=== PATIENT | female | born 1945 | race Caucasian/White ===

== ENCOUNTER → 2020-08-27 14:50 | Outpatient (BNVA) | payer MEDICARE, SELFPAY | PROVIDERS: Visit Provider Nurse Practitioner Gerontology | DX: E11.65 Type 2 diabetes mellitus with hyperglycemia (principal); E11.21 Type 2 diabetes mellitus with diabetic nephropathy; E78.5 Hyperlipidemia, unspecified; I10 Essential (primary) hypertension; Z79.4 Long term (current) use of insulin | CPT/HCPCS: 82947; 99212 ==

== ENCOUNTER 2020-11-01 08:19 | Outpatient (REF) | payer MEDICARE, SELFPAY ==
[2020-11-01 09:20] LABS: Estimated Average Glucose 148 mg/dL; Hemoglobin A1C 152.4012 umol/L; Hemoglobin A1c % 6.8 %
[2020-11-01 09:25] LABS: Alanine Aminotransferase 16 U/L (0-31); Albumin Level 4.2 g/dL (3.5-5.0); Alkaline Phosphatase 59 U/L (39-117); Anion Gap 12 (12-20); Aspartate Amino Transferase 17 U/L (5-31); Bilirubin Total 0.4 mg/dL (0.0-1.0); Blood Urea Nitrogen 34 mg/dL (9-16); Calcium 9.7 mg/dL (8.4-10.2); Carbon Dioxide 26 mmol/L (22-29); Chloride 109 mmol/L (96-108); Cholesterol 123 mg/dL; Estimated Glomerular Filt Rate 34; Glucose Fasting 117 mg/dL (60-99); HDL Cholesterol 38 mg/dL; LDL Cholesterol Calculated 67 mg/dl; Potassium 5.1 mmol/L (3.3-5.1); Sodium 142 mmol/L (135-145); Total Protein 6.4 g/dL (6.5-8.0); Triglycerides 94 mg/dL
[2020-11-01 12:10] LABS: Creatinine Urine 72.87 mg/dL; Microalbum/Creatinine Ratio Ur 340.3 ug/mg cr
== END 2020-11-01 08:20 | disposition home or self-care (01) ==
LOC: HO.LAB 08:19
PROVIDERS: Visit Provider Nurse Practitioner Gerontology
DX: E11.21 Type 2 diabetes mellitus with diabetic nephropathy (principal)
CPT/HCPCS: 36415; 80053; 80061; 82043; 83036

== ENCOUNTER → 2021-07-30 12:49 | Outpatient (BNVA) | payer MEDICARE, SELFPAY | PROVIDERS: Visit Provider Nurse Practitioner Gerontology | DX: E11.65 Type 2 diabetes mellitus with hyperglycemia (principal); E11.21 Type 2 diabetes mellitus with diabetic nephropathy; E78.5 Hyperlipidemia, unspecified; I10 Essential (primary) hypertension; Z79.4 Long term (current) use of insulin | CPT/HCPCS: 82947; 83036; 99212 ==

== ENCOUNTER 2021-08-08 10:11 | Outpatient (REF) | payer MEDICARE, SELFPAY ==
[2021-08-08 11:29] LABS: Creatinine Urine 93.71 mg/dL
[2021-08-08 11:45] LABS: Alanine Aminotransferase 18 U/L (0-31); Albumin Level 4.3 g/dL (3.5-5.0); Alkaline Phosphatase 60 U/L (39-117); Anion Gap 14 (12-20); Aspartate Amino Transferase 23 U/L (5-31); Bilirubin Total 0.4 mg/dL (0.0-1.0); Blood Urea Nitrogen 34 mg/dL (9-16); Calcium 9.8 mg/dL (8.4-10.2); Carbon Dioxide 23 mmol/L (22-29); Chloride 109 mmol/L (96-108); Cholesterol 160 mg/dL; Estimated Glomerular Filt Rate 33; Glucose Fasting 102 mg/dL (60-99); HDL Cholesterol 41 mg/dL; LDL Cholesterol Calculated 99 mg/dl; Potassium 5.1 mmol/L (3.3-5.1); Sodium 141 mmol/L (135-145); Total Protein 6.8 g/dL (6.5-8.0); Triglycerides 103 mg/dL
[2021-08-10 05:52] LABS: LDL Cholesterol Direct 93 mg/dL (<100)
== END 2021-08-08 10:12 | disposition home or self-care (01) ==
LOC: HO.LAB 10:11
PROVIDERS: Visit Provider Nurse Practitioner Gerontology
DX: E11.21 Type 2 diabetes mellitus with diabetic nephropathy (principal)
CPT/HCPCS: 36415; 80053; 80061; 82043; 83721

== ENCOUNTER 2022-02-01 19:40 | Emergency (ER) | payer MEDICARE, SELFPAY ==
--- NOTE | ~2022-02-01 | XR_ITS ---
EXAMINATION: BILATERAL FOOT. CLINICAL INFORMATION: Redness steatosis. COMPARISON: None TECHNIQUE: 3 views each foot. FINDINGS: Right foot: There is diffuse osteopenia no visible fracture or dislocation seen. There is enthesophytes along the base of the fifth metatarsal. The joint spaces are maintained normal. There is vascular calcifications in the right foot and right ankle. Small calcaneal heel and retrocalcaneal enthesophytes are seen. Left foot: There is no visible acute fracture, dislocation or subluxation seen. There is moderate size enthesophyte along the base of the fifth metatarsal. There is diffuse osteopenia without underlying fracture or dislocation. The ankle mortise and subtalar joints are normal. There is calcaneal heel and retrocalcaneal enthesophytes. XR/XR foot LT min 3V IMPRESSION: No acute fracture or dislocation. Diffuse osteopenia. Enthesophytes along the calcaneal heel, retrocalcaneum and the base of fifth metacarpal.
--- NOTE | ~2022-02-01 | XR_ITS ---
EXAMINATION: BILATERAL FOOT. CLINICAL INFORMATION: Redness steatosis. COMPARISON: None TECHNIQUE: 3 views each foot. FINDINGS: Right foot: There is diffuse osteopenia no visible fracture or dislocation seen. There is enthesophytes along the base of the fifth metatarsal. The joint spaces are maintained normal. There is vascular calcifications in the right foot and right ankle. Small calcaneal heel and retrocalcaneal enthesophytes are seen. Left foot: There is no visible acute fracture, dislocation or subluxation seen. There is moderate size enthesophyte along the base of the fifth metatarsal. There is diffuse osteopenia without underlying fracture or dislocation. The ankle mortise and subtalar joints are normal. There is calcaneal heel and retrocalcaneal enthesophytes. XR/XR foot RT min 3V IMPRESSION: No acute fracture or dislocation. Diffuse osteopenia. Enthesophytes along the calcaneal heel, retrocalcaneum and the base of fifth metacarpal.
[2022-02-01 19:51] VITALS: BP 166/75; PULSE 111; RESP 16; TEMP 36.6; O2SAT 98; BMI 32.5
--- NOTE | 2022-02-01 19:55 | ED.EXTPRO ---
HPI - Extremity Problem General Chief complaint: Extremity Injury, Lower <Sean Acharya DO - Last Filed: 02/01/22 19:59> Stated complaint: left foot pain ?ulcer on foot <Sean Acharya DO - Last Filed: 02/01/22 19:59> Time Seen by Provider: 02/01/22 20:50 <Sean Acharya DO - Last Filed: 02/01/22 19:59> Source: patient <Sera Sawant MD - Last Filed: 02/01/22 22:59> Mode of arrival: ambulatory <Sera Sawant MD - Last Filed: 02/01/22 22:59> Limitations: no limitations <Sera Sawant MD - Last Filed: 02/01/22 22:59> History of Present Illness HPI Narrative: Patient comes to the emergency room complaining of blister to the lateral aspect of the left foot. Patient states it has been present for 4 days. However, she has had redness for several months intermittently. Patient states that recently she but bigger size shoes so that the inner lining of the shoe does not rub against the wound. Patient states that she has history of neuropathy but it is on the milder side. Patient denies any fever or chills <Sera Sawant MD - Last Filed: 02/01/22 22:59> Related Data Home medications: Home Medications Medication Instructions Recorded Confirmed mecobalamin (vitamin B12) 1,000 1,000 mcg sublingual DAILY 02/11/20 07/30/21 mcg disintegrating tablet,sublingual naproxen sodium 220 mg capsule 220 mg PO Q12H 02/11/20 07/30/21 (Aleve) cholecalciferol (vitamin D3) 25 25 mcg PO DAILY 08/27/20 07/30/21 mcg (1,000 unit) capsule Previous Rx's Medication Instructions Recorded pen needle, diabetic 32 gauge x 1 ea miscellaneous BID #100 ea 03/12/21 (BD Clau 2nd Gen Pen Needle) chlorthalidone 25 mg tablet 25 mg PO DAILY #90 tabs 07/27/21 lisinopril 40 mg tablet 40 mg PO DAILY #90 tabs 07/30/21 metformin 500 mg tablet 500 mg PO BID #180 tabs 07/30/21 pioglitazone 30 mg tablet 30 mg PO DAILY #30 tabs 07/30/21 dapagliflozin 10 mg tablet 10 mg PO QAM #30 [facility]12[facility] insulin glargine 100 unit/mL (3 30 unit (0.3 mL) subcut QAM #15 mL 08/12/21 mL) subcutaneous pen (Lantus Solostar U-100 Insulin) liraglutide 0.6 mg/0.1 mL (18 mg/3 1.8 mg (0.3 mL) subcut DAILY #9 mL 01/01/22 mL) subcutaneous pen injector (Victoza 3-Jamie) simvastatin 40 mg tablet 40 mg PO BEDTIME 90 days #30 tabs 01/29/22 cephalexin 500 mg capsule 500 mg PO BID #14 caps 02/01/22 doxycycline hyclate 100 mg capsule 100 mg PO BID #14 caps 02/01/22 <Sean Acharya DO - Last Filed: 02/01/22 19:59> Allergies/Adverse reactions: Allergies Allergy/AdvReac Type Severity Reaction Status Date / Time penicillin V Allergy Unknown Hives Verified 07/30/21 13:08 <Sean Acharya DO - Last Filed: 02/01/22 19:59> Review of Systems Review of Systems: Constitutional : No Weight loss, No Fever, No Chills, No Night Sweats, No Fatigue, No Malaise ENT/Mouth : No Hearing loss, No Ear Pain, No Nasal Congestion, No Sinus Pain, No Hoarseness, No sore throat, No Rhinorrhea, No Swallowing Difficulty Eyes: No Eye Pain, No Swelling, No Redness, No Foreign Body, No Discharge, No Vision Changes Cardiovascular : No Chest Pain, No SOB, No Dyspnea on Exertion, No Orthopnea, No Edema, No Palpitations Respiratory : No Cough, No Sputum, No Wheezing, No Smoke Exposure, No Dyspnea Gastrointestinal : No Nausea, No Vomiting, No Diarrhea, No Constipation, No abdominal Pain, No Hematochezia, No Melena Genitourinary : no irregular bleeding, No Dysuria, No Urinary Frequency, No Hematuria, No Urinary Incontinence, No Urgency, No Flank Pain, No Urinary Flow Changes, No Hesitancy Musculoskeletal : No joint pain, No Myalgias, No Joint Swelling Skin : Complaining of a skin lesion/blister to the lateral aspect of the left foot Neuro : No Weakness, No Numbness, No Paresthesias, No Loss of Consciousness, No Dizziness, No Headache Psych : No Anxiety/Panic, No Depression, No SI/HI/AH/VH, No Social Issues, Heme/Lymph: No Bruising, No Bleeding,No Lymphadenopathy Endocrine : No Polyuria, No Polydipsia, No Temperature Intolerance <Sera Sawant MD - Last Filed: 02/01/22 22:59> [facility] Past Medical History Medical History: Medical History Chronic kidney disease, stage 3 Essential hypertension Hyperlipidemia LDL goal <100 Type 2 diabetes mellitus with hyperglycemia, with long-term current use of insulin Type 2 diabetes with nephropathy <Sean Acharya DO - Last Filed: 02/01/22 19:59> Surgical History: Surgical History Hx of section <Sean Acharya DO - Last Filed: 02/01/22 19:59> Family History Family History: Family History Maternal Aunt Diabetes <Sean Acharya DO - Last Filed: 02/01/22 19:59> Social History Social History: Social History Household Members Other:: daughter Patient Tobacco Use Status: Never used Tobacco Advance Directives: No <Sean Acharya DO - Last Filed: 02/01/22 19:59> Physical Exam Vital Signs: Vital Signs: Last Vital Signs Temp 97.7 F 02/01/22 22:25 Pulse 96 02/01/22 22:25 Resp 16 02/01/22 22:25 BP 131/62 02/01/22 22:25 Pulse Ox 97 02/01/22 22:25 O2 Del Method 02/01/22 22:25 BMI result Body Mass Index 32.5 <Sean Acharya DO - Last Filed: 02/01/22 19:59> Vital Signs: Last Vital Signs Temp 97.7 F 02/01/22 22:25 Pulse 96 02/01/22 22:25 Resp 16 02/01/22 22:25 BP 131/62 02/01/22 22:25 Pulse Ox 97 02/01/22 22:25 O2 Del Method 02/01/22 22:25 BMI result Body Mass Index 32.5 <Sera Sawant MD - Last Filed: 02/01/22 22:59> Const: Other: Appearance: Alert. Oriented X3. No acute distress. Eyes: Pupils equal, round and reactive to light. ENT: Pharynx normal. Neck: Normal inspection. Neck supple. No lymph nodes noted. No crepitus CVS: Normal heart rate and rhythm. Pulses normal. Normal S1 and S2 Respiratory: No respiratory distress. Breath sounds normal. No Wheezing. No rales Abdomen: Soft and nontender. No rigidity. No distention. Skin: Skin warm and dry. Normal skin color. Normal skin turgor. There is a 2 cm x 1 cm blister to the lateral aspect of the foot. Extremities: No lower extremity edema. No Lacerations. No Rash Neuro: Oriented X 3. No motor deficit. No sensory deficit. Moving all extremities. No slurred speech. CN 2 through 12 grossly intact Psych: calm, cooperative, normal affect <Sera Sawant MD - Last Filed: 02/01/22 22:59> Course Course Course Narrative: 76 year old female presents to the ED with bilateral foot redness for months on and off. She states she changed shoes and felt they were too tight. She states she has had no injuries but noticed a blister than formed a ulcer to her left lateral foot. She denies any falls or new injuries. Patient is diabetic as well. She states this has been worsening for the past 4 days. On exam both feet have redness to all ten toes left foot has a small healing ulcer to the left foot along the fifth metatarsal. Concern for osteomyelitis diabetic foot ulcer. I will start on antibiotics I will send blood cultures lactic and get XR's. Patient seen in triage I will sign out for interpretation of labs, diagnosis and ultimate disposition. <Sean Acharya DO - Last Filed: 02/01/22 19:59> 76 year old female presents to the ED with bilateral foot redness for months on and off. She states she changed shoes and felt they were too tight. She states she has had no injuries but noticed a blister than formed a ulcer to her left lateral foot. She denies any falls or new injuries. Patient is diabetic as well. She states this has been worsening for the past 4 days. On exam both feet have redness to all ten toes left foot has a small healing ulcer to the left foot along the fifth metatarsal. Concern for osteomyelitis diabetic foot ulcer. I will start on antibiotics I will send blood cultures lactic and get XR's. Patient seen in triage I will sign out for interpretation of labs, diagnosis and ultimate disposition. All of patient's labs and imaging are pending, blood pressure normal, no fever. X-rays are negative for osteomyelitis. Lactic acid within normal limits, white blood cell count slightly elevated, ESR and CRP also slightly elevated, but not to suspect osteomyelitis. Patient's creatinine is bumped from baseline. Patient usually has a creatinine of 1.5 approximately, 2 days 2.17. Patient is receiving IV fluids. I discussed with the patient that ideally we should be rechecking labs to see if this is acute on chronic kidney injury versus worsening of her VANNA. Patient states that she has an appointment pending with her primary care physician, and she prefers to wait until her next appointment to recheck the creatinine levels instead of waiting for the recheck, and respectfully declined a 2nd creatinine check Patient was given 1 p.o. dose of Keflex and cephalexin <Sera Sawant MD - Last Filed: 02/01/22 22:59> Medications Administered Generic Name Dose Route Start Last Admin Trade Name Freq PRN Reason Stop Dose Admin Sodium Chloride 1,000 mls @ 999 mls/hr 02/01/22 21:56 02/01/22 22:07 Ns IVCONT 02/01/22 22:56 999 mls/hr .Q1H1M ONE Administration <Sean Acharya DO - Last Filed: 02/01/22 19:59> Medications Administered Generic Name Dose Route Start Last Admin Trade Name Freq PRN Reason Stop Dose Admin Sodium Chloride 1,000 mls @ 999 mls/hr 02/01/22 21:56 02/01/22 22:07 Ns IVCONT 02/01/22 22:56 999 mls/hr .Q1H1M ONE Administration <Sera Sawant MD - Last Filed: 02/01/22 22:59> MDM - Extremity (Nontraumatic) Lab Data Result diagrams: : 02/01/22 21:08 02/01/22 21:08 <Sean Acharya DO - Last Filed: 02/01/22 19:59> Labs: Lab Results 02/01/22 02/01/22 02/01/22 Range/Units 21:08 21:08 21:08 WBC 11.6 H (4.8-10.8) X10*3/uL RBC 4.06 L (4.20-5.50) X10*6/uL Hgb 12.1 (12.0-16.0) g/dl Hct 37.2 (37.0-47.0) % MCV 91.6 (80.0-98.0) fL MCH 29.8 (27.0-33.0) pg MCHC 32.5 (31.0-35.0) g/dl RDW 14.6 (11.0-16.0) % Plt Count 286 (160-400) X10*3/uL MPV 9.8 (9.4-12.3) fL Immature Gran % (Auto) 1.0 H (0.0-0.4) % Neut % (Auto) 67.3 (45-73) % Lymph % (Auto) 19.8 L (20-40) % [place] % (Auto) 8.7 (2-11) % Eos % (Auto) 2.9 (0-4) % Baso % (Auto) 0.3 (0-2) % Lymph # (Auto) 2.3 (1.2-4.9) X10*3/uL [place] # (Auto) 1.0 (0.1-1.2) X10*3/uL Eos # (Auto) 0.3 (0.0-0.4) X10*3/uL Baso # (Auto) 0.0 (0.0-0.2) X10*3/uL Abs Immat Gran (auto) 0.11 H (0.00-0.03) X10*3/uL Absolute Neuts (auto) 7.8 (2.0-8.3) x10*3/uL Absolute Nucleated RBC 0.000 (0.0-0.012) X10*3/uL Nucleated RBC % (auto) 0.0 (0.0-0.2) /100WBC ESR 25 H (0-20) MM/HR Sodium 141 (135-145) mmol/L Potassium 5.2 H (3.3-5.1) mmol/L Chloride 106 (96-108) mmol/L Carbon Dioxide 22 (22-29) mmol/L Anion Gap 18 (12-20) BUN 49 H (9-16) mg/dL Creatinine 2.17 H (0.5-1.4) mg/dL Estim Creat Clear Calc 23.0 Estimated GFR 22 Random Glucose 142 H (60-115) mg/dL Lactic Acid (0.5-2.0) mmol/L Calcium 10.0 (8.4-10.2) mg/dL Total Bilirubin 0.3 (0.0-1.0) mg/dL Direct Bilirubin < 0.2 (0.0-0.5) mg/dL AST 29 (5-31) U/L ALT 18 (0-31) U/L Alkaline Phosphatase 69 (39-117) U/L C-Reactive Protein 0.28 (< or = 0.50) mg/dL Total Protein 7.5 (6.5-8.0) g/dL Albumin 4.6 (3.5-5.0) g/dL COVID-19 ([facility]) (Negative) COVID-19 Clin Com 02/01/22 02/01/22 Range/Units 21:08 21:08 WBC (4.8-10.8) X10*3/uL RBC (4.20-5.50) X10*6/uL Hgb (12.0-16.0) g/dl Hct (37.0-47.0) % MCV (80.0-98.0) fL MCH (27.0-33.0) pg MCHC (31.0-35.0) g/dl RDW (11.0-16.0) % Plt Count (160-400) X10*3/uL MPV (9.4-12.3) fL Immature Gran % (Auto) (0.0-0.4) % Neut % (Auto) (45-73) % Lymph % (Auto) (20-40) % [place] % (Auto) (2-11) % Eos % (Auto) (0-4) % Baso % (Auto) (0-2) % Lymph # (Auto) (1.2-4.9) X10*3/uL [place] # (Auto) (0.1-1.2) X10*3/uL Eos # (Auto) (0.0-0.4) X10*3/uL Baso # (Auto) (0.0-0.2) X10*3/uL Abs Immat Gran (auto) (0.00-0.03) X10*3/uL Absolute Neuts (auto) (2.0-8.3) x10*3/uL Absolute Nucleated RBC (0.0-0.012) X10*3/uL Nucleated RBC % (auto) (0.0-0.2) /100WBC ESR (0-20) MM/HR Sodium (135-145) mmol/L Potassium (3.3-5.1) mmol/L Chloride (96-108) mmol/L Carbon Dioxide (22-29) mmol/L Anion Gap (12-20) BUN (9-16) mg/dL Creatinine (0.5-1.4) mg/dL Estim Creat Clear Calc Estimated GFR Random Glucose (60-115) mg/dL Lactic Acid 1.1 (0.5-2.0) mmol/L Calcium (8.4-10.2) mg/dL Total Bilirubin (0.0-1.0) mg/dL Direct Bilirubin (0.0-0.5) mg/dL AST (5-31) U/L ALT (0-31) U/L Alkaline Phosphatase (39-117) U/L C-Reactive Protein (< or = 0.50) mg/dL Total Protein (6.5-8.0) g/dL Albumin (3.5-5.0) g/dL COVID-19 ([facility]) Negative (Negative) COVID-19 Clin Com See Note <Sean Acharya, DO - Last Filed: 02/01/22 19:59> Lab Results 02/01/22 02/01/22 02/01/22 Range/Units 21:08 21:08 21:08 WBC 11.6 H (4.8-10.8) X10*3/uL RBC 4.06 L (4.20-5.50) X10*6/uL Hgb 12.1 (12.0-16.0) g/dl Hct 37.2 (37.0-47.0) % MCV 91.6 (80.0-98.0) fL MCH 29.8 (27.0-33.0) pg MCHC 32.5 (31.0-35.0) g/dl RDW 14.6 (11.0-16.0) % Plt Count 286 (160-400) X10*3/uL MPV 9.8 (9.4-12.3) fL Immature Gran % (Auto) 1.0 H (0.0-0.4) % Neut % (Auto) 67.3 (45-73) % Lymph % (Auto) 19.8 L (20-40) % [place] % (Auto) 8.7 (2-11) % Eos % (Auto) 2.9 (0-4) % Baso % (Auto) 0.3 (0-2) % Lymph # (Auto) 2.3 (1.2-4.9) X10*3/uL [place] # (Auto) 1.0 (0.1-1.2) X10*3/uL Eos # (Auto) 0.3 (0.0-0.4) X10*3/uL Baso # (Auto) 0.0 (0.0-0.2) X10*3/uL Abs Immat Gran (auto) 0.11 H (0.00-0.03) X10*3/uL Absolute Neuts (auto) 7.8 (2.0-8.3) x10*3/uL Absolute Nucleated RBC 0.000 (0.0-0.012) X10*3/uL Nucleated RBC % (auto) 0.0 (0.0-0.2) /100WBC ESR 25 H (0-20) MM/HR Sodium 141 (135-145) mmol/L Potassium 5.2 H (3.3-5.1) mmol/L Chloride 106 (96-108) mmol/L Carbon Dioxide 22 (22-29) mmol/L Anion Gap 18 (12-20) BUN 49 H (9-16) mg/dL Creatinine 2.17 H (0.5-1.4) mg/dL Estim Creat Clear Calc 23.0 Estimated GFR 22 Random Glucose 142 H (60-115) mg/dL Lactic Acid (0.5-2.0) mmol/L Calcium 10.0 (8.4-10.2) mg/dL Total Bilirubin 0.3 (0.0-1.0) mg/dL Direct Bilirubin < 0.2 (0.0-0.5) mg/dL AST 29 (5-31) U/L ALT 18 (0-31) U/L Alkaline Phosphatase 69 (39-117) U/L C-Reactive Protein 0.28 (< or = 0.50) mg/dL Total Protein 7.5 (6.5-8.0) g/dL Albumin 4.6 (3.5-5.0) g/dL COVID-19 ([facility]) (Negative) COVID-19 Clin Com 02/01/22 02/01/22 Range/Units 21:08 21:08 WBC (4.8-10.8) X10*3/uL RBC (4.20-5.50) X10*6/uL Hgb (12.0-16.0) g/dl Hct (37.0-47.0) % MCV (80.0-98.0) fL MCH (27.0-33.0) pg MCHC (31.0-35.0) g/dl RDW (11.0-16.0) % Plt Count (160-400) X10*3/uL MPV (9.4-12.3) fL Immature Gran % (Auto) (0.0-0.4) % Neut % (Auto) (45-73) % Lymph % (Auto) (20-40) % [place] % (Auto) (2-11) % Eos % (Auto) (0-4) % Baso % (Auto) (0-2) % Lymph # (Auto) (1.2-4.9) X10*3/uL [place] # (Auto) (0.1-1.2) X10*3/uL Eos # (Auto) (0.0-0.4) X10*3/uL Baso # (Auto) (0.0-0.2) X10*3/uL Abs Immat Gran (auto) (0.00-0.03) X10*3/uL Absolute Neuts (auto) (2.0-8.3) x10*3/uL Absolute Nucleated RBC (0.0-0.012) X10*3/uL Nucleated RBC % (auto) (0.0-0.2) /100WBC ESR (0-20) MM/HR Sodium (135-145) mmol/L Potassium (3.3-5.1) mmol/L Chloride (96-108) mmol/L Carbon Dioxide (22-29) mmol/L Anion Gap (12-20) BUN (9-16) mg/dL Creatinine (0.5-1.4) mg/dL Estim Creat Clear Calc Estimated GFR Random Glucose (60-115) mg/dL Lactic Acid 1.1 (0.5-2.0) mmol/L Calcium (8.4-10.2) mg/dL Total Bilirubin (0.0-1.0) mg/dL Direct Bilirubin (0.0-0.5) mg/dL AST (5-31) U/L ALT (0-31) U/L Alkaline Phosphatase (39-117) U/L C-Reactive Protein (< or = 0.50) mg/dL Total Protein (6.5-8.0) g/dL Albumin (3.5-5.0) g/dL COVID-19 ([facility]) Negative (Negative) COVID-19 Clin Com See Note <Sera Sawant MD - Last Filed: 02/01/22 22:59> Discharge Plan Discharge Clinical Impression: Blister of foot, Chronic kidney disease <Sean Acharya DO - Last Filed: 02/01/22 19:59> Patient Disposition: Home, Self-Care <Sean Acharya DO - Last Filed: 02/01/22 19:59> Instructions: Blister (ED) <Sean Acharya DO - Last Filed: 02/01/22 19:59> Additional Instructions: Please follow-up with your primary care physician tomorrow. If you have any worsening or new symptoms, please return to the emergency room or call 911 <Sean Acharya DO - Last Filed: 02/01/22 19:59> Prescriptions: New doxycycline hyclate 100 mg capsule 100 mg PO BID Qty: 14 0RF cephalexin 500 mg capsule 500 mg PO BID Qty: 14 0RF No Action pen needle, diabetic [BD Clau 2nd Gen Pen Needle] 32 gauge x 5/32 needle 1 ea miscellaneous BID Qty: 100 10RF chlorthalidone 25 mg tablet 25 mg PO DAILY Qty: 90 1RF Lantus Solostar U-100 Insulin 100 unit/mL (3 mL) insulin pen 30 unit subcut QAM Qty: 15 6RF Farxiga 10 mg tablet 10 mg PO QAM Qty: 30 6RF Victoza 3-Jamie 0.6 mg/0.1 mL (18 mg/3 mL) pen injector 1.8 mg subcut DAILY Qty: 9 2RF simvastatin 40 mg tablet 40 mg PO BEDTIME 90 Days Qty: 30 1RF Rx Instructions: future refills to pcp. pioglitazone 30 mg tablet 30 mg PO DAILY Qty: 30 6RF metformin 500 mg tablet 500 mg PO BID Qty: 180 1RF lisinopril 40 mg tablet 40 mg PO DAILY Qty: 90 1RF naproxen sodium [Aleve] 220 mg capsule 220 mg PO Q12H mecobalamin (vitamin B12) 1,000 mcg tablet,disintegrating 1,000 mcg sublingual DAILY Rx Instructions: place tablet under tongue and allow to dissolve for at least30 secs before swallowing cholecalciferol (vitamin D3) 25 mcg (1,000 unit) capsule 25 mcg PO DAILY <Sean Acharya DO - Last Filed: 02/01/22 19:59>
[2022-02-01 21:13] LABS: MANUAL DIFF FLAG NO
[2022-02-01 21:24] LABS: Basophils Percent Auto 0.3 % (0-2); Eosinophils Absolute Auto 0.3 X10*3/uL (0.0-0.4); Eosinophils Percent Auto 2.9 % (0-4); Hematocrit 37.2 % (37.0-47.0); Hemoglobin 12.1 g/dl (12.0-16.0); Imm Gran Abs Auto 0.11 X10*3/uL (0.00-0.03); Lymphocytes Absolute Auto 2.3 X10*3/uL (1.2-4.9); Lymphocytes Percent Auto 19.8 % (20-40); Mean Corpuscular HGB Conc 32.5 g/dl (31.0-35.0); Mean Corpuscular Hemoglobin 29.8 pg (27.0-33.0); Mean Corpuscular Volume 91.6 fL (80.0-98.0); Mean Platelet Volume 9.8 fL (9.4-12.3); Monocytes Percent Auto 8.7 % (2-11); Neutrophils Absolute Auto 7.8 x10*3/uL (2.0-8.3); Neutrophils Percent Auto 67.3 % (45-73); Platelet Count 286 X10*3/uL (160-400); Red Blood Count 4.06 X10*6/uL (4.20-5.50); Red Cell Distribution Width 14.6 % (11.0-16.0); White Blood Count 11.6 X10*3/uL (4.8-10.8)
[2022-02-01 21:31] LABS: COVID-19 Test Negative (Negative); IDNOW Serial# 16C4AD1C
[2022-02-01 21:32] LABS: Lactic Acid 1.1 mmol/L (0.5-2.0)
[2022-02-01 21:44] LABS: Alanine Aminotransferase 18 U/L (0-31); Albumin Level 4.6 g/dL (3.5-5.0); Alkaline Phosphatase 69 U/L (39-117); Anion Gap 18 (12-20); Aspartate Amino Transferase 29 U/L (5-31); Bilirubin Direct < 0.2 mg/dL (0.0-0.5); Bilirubin Total 0.3 mg/dL (0.0-1.0); Blood Urea Nitrogen 49 mg/dL (9-16); C Reactive Protein 0.28 mg/dL (< or = 0.50); Carbon Dioxide 22 mmol/L (22-29); Chloride 106 mmol/L (96-108); Estimated Glomerular Filt Rate 22; Glucose Random 142 mg/dL (60-115); Potassium 5.2 mmol/L (3.3-5.1); Sodium 141 mmol/L (135-145); Total Protein 7.5 g/dL (6.5-8.0)
[2022-02-01] MEDS: 0.9 % Sodium Chloride 1,000 ML 999 ML IVCONT (22:07)
[2022-02-01 22:11] VITALS: BP 145/67; PULSE 100; RESP 18; O2SAT 97
[2022-02-01 22:25] VITALS: BP 131/62; PULSE 96; RESP 16; TEMP 36.5; O2SAT 97
[2022-02-01 22:26] LABS: Erythrocyte Sedimentation Rate 25 MM/HR (0-20)
[2022-02-01] MEDS: Doxycycline Monohydrate 100 MG CAPSULE PO (22:59)
[2022-02-01] MEDS: cephALEXin 500 MG CAPSULE PO (22:59)
[2022-02-01 23:43] VITALS: BP 131/76; PULSE 100; RESP 16; TEMP 37.2; O2SAT 97
== END 2022-02-01 23:44 | disposition home or self-care (01) ==
PROVIDERS: Emergency Provider Emergency Medicine
DX: S90.822A Blister (nonthermal), left foot, initial encounter (principal); X58.XXXA Exposure to other specified factors, initial encounter; E11.22 Type 2 diabetes mellitus with diabetic chronic kidney disease; I12.9 Hypertensive chronic kidney disease with stage 1 through stage 4 chronic kidney disease, or unspecified chronic kidney disease; N18.30 Chronic kidney disease, stage 3 unspecified; E78.5 Hyperlipidemia, unspecified; Z20.822 Contact with and (suspected) exposure to COVID-19; Y93.9 Activity, unspecified; Y92.9 Unspecified place or not applicable; Y99.9 Unspecified external cause status; Z79.4 Long term (current) use of insulin; Z79.899 Other long term (current) drug therapy; Z79.02 Long term (current) use of antithrombotics/antiplatelets
CPT/HCPCS: 36415; 73630; 80048; 80076; 83605; 85025; 85652; 86140; 87040; 87635; 99283; 99284

== ENCOUNTER 2022-03-09 03:37 | Emergency (ER) | payer MEDICARE, SELFPAY ==
--- NOTE | 2022-03-09 03:59 | ED.GENADULT ---
HPI - General Adult General Stated complaint: cardiac arrest Time Seen by Provider: 03/09/22 03:38 Source: EMS Mode of arrival: EMS Limitations: other (In cardiac arrest) History of Present Illness HPI narrative: Patient comes emergency room in cardiac arrest. According to EMS, patient had a witnessed cardiac arrest by her daughter. 911 was called, when EMS arrived to the patient's residence, patient was in asystole. After 20 minutes of CPR, EMS crew was asked to stop resuscitation efforts. However, seems that the patient had agonal breathing after the CPR physician overs were stopped, therefore decided to restart CPR and bring the patient to the emergency room. Patient has not had any shockable rhythms. Patient received 7 epinephrine. In 1 dose of bicarb prior to arrival. When patient arrived to emergency room, patient was in asystole. Patient came with an Igel, patient was intubated. There was a very large amount of frothy sputum. In total, patient received CPR for 50 minutes, palm of the was called at 03:42 Related Data Home Medications Medication Instructions Recorded Confirmed mecobalamin (vitamin B12) 1,000 1,000 mcg sublingual DAILY 02/11/20 07/30/21 mcg disintegrating tablet,sublingual naproxen sodium 220 mg capsule 220 mg PO Q12H 02/11/20 07/30/21 (Aleve) cholecalciferol (vitamin D3) 25 25 mcg PO DAILY 08/27/20 07/30/21 mcg (1,000 unit) capsule Previous Rx's Medication Instructions Recorded pen needle, diabetic 32 gauge x 1 ea miscellaneous BID #100 ea 03/12/21 (BD Clau 2nd Gen Pen Needle) chlorthalidone 25 mg tablet 25 mg PO DAILY #90 tabs 07/27/21 pioglitazone 30 mg tablet 30 mg PO DAILY #30 tabs 07/30/21 dapagliflozin 10 mg tablet 10 mg PO QAM #30 tabs 08/12/21 (Farxiga) insulin glargine 100 unit/mL (3 30 unit (0.3 mL) subcut QAM #15 mL 08/12/21 mL) subcutaneous pen (Lantus Solostar U-100 Insulin) liraglutide 0.6 mg/0.1 mL (18 mg/3 1.8 mg (0.3 mL) subcut DAILY #9 mL 01/01/22 mL) subcutaneous pen injector (Victoza 3-Ajmie) simvastatin 40 mg tablet 40 mg PO BEDTIME 90 days #30 tabs 01/29/22 cephalexin 500 mg capsule 500 mg PO BID #14 caps 02/01/22 doxycycline hyclate 100 mg capsule 100 mg PO BID #14 caps 02/01/22 metformin 500 mg tablet 500 mg PO BID #60 tabs 02/18/22 lisinopril 40 mg tablet 40 mg PO DAILY #30 tabs 02/19/22 Allergies Allergy/AdvReac Type Severity Reaction Status Date / Time penicillin V Allergy Unknown Hives Verified 07/30/21 13:08 Review of Systems Review of Systems: Yes Unobtainable due to mental condition PMFSH Past Medical History Medical History Chronic kidney disease, stage 3 Essential hypertension Hyperlipidemia LDL goal <100 Type 2 diabetes mellitus with hyperglycemia, with long-term current use of insulin Type 2 diabetes with nephropathy Surgical History Hx of section Family History Family History Maternal Aunt Diabetes Social History Social History Household Members Other:: daughter Patient Tobacco Use Status: Never used Tobacco Advance Directives: No Advance Directives Information Provided: Yes Physical Exam ED Const Other: Appearance: Unresponsive, CPR in progress Eyes: Dilated bilaterally, unresponsive to light ENT: Large amount of frothy pinkish sputum Neck: Normal inspection. Neck supple. No lymph nodes noted. No crepitus CVS: CPR in progress Respiratory: Intubated Abdomen: Distended Skin: Cold to touch Extremities: +3 pitting edema Neuro: Unresponsive Psych: Unresponsive Course Course Course Narrative: In the ED, patient remained in the systolic, no shockable rhythms, after a total of 50 minutes of CPR, time of was called at 03:43. Given the amount of frothy pinkish sputum that came out of the ET tube after the patient was intubated, it is likely that patient of flash pulmonary edema Medical Decision Making Lab Data Labs: Lab Results 03/09/22 Range/Units 03:42 POC Glucose 240 H (60-115) mg/dL Critical Care Time Critical Care Time Critical Care Time: Yes Total Critical Care Time: 30 Attestation: I have personally provided critical care time. Time includes review of lab data, radiology results, discussion with consultants, and monitoring for potential decompensation. Intervention performed as documented. Discharge Plan Discharge Clinical Impression: Cardiac arrest Patient Disposition: Date/Time: 03/09/22 03:43
--- NOTE | 2022-03-09 04:22 | PC.NURSE ---
RN called [facility] spoke to Lindsey who reports pt will be declined for organ donation based on age. Donor .
--- NOTE | 2022-03-09 04:34 | PC.NURSE ---
see code sheet for triage documentation.
== END 2022-03-09 07:08 | disposition expired ==
LOC: HO.ED 04:33
PROVIDERS: Emergency Provider Emergency Medicine
DX: I46.9 Cardiac arrest, cause unspecified (principal); E11.9 Type 2 diabetes mellitus without complications; Z79.4 Long term (current) use of insulin; Z79.899 Other long term (current) drug therapy
CPT/HCPCS: 82947; 96374; 99281; 99285; J0171